=== PATIENT | male | born 2000 | race Caucasian/White ===

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

== ENCOUNTER → 2024-12-26 | Outpatient (CLI) | payer OTHER | END | disposition home or self-care (01) | LOC: RAD 07:58 | PROVIDERS: ATTEND Nurse Practitioner Family | DX: Z00.01 Encounter for general adult medical examination with abnormal findings (principal) ==